=== PATIENT | female | born 1980 | race Caucasian/White ===

== ENCOUNTER 2019-10-06 08:00 | Outpatient (CLI) | payer BC, SELFPAY ==
[2019-10-08 20:01] LABS: SARS-CoV-2 RNA Undetected (Undetected); SARS-CoV-2 Specimen Source Nasopharynx
== END 2019-10-06 08:20 ==
PROVIDERS: Visit Provider Family Medicine
DX: Z11.59 Encounter for screening for other viral diseases (principal)
CPT/HCPCS: U0003

== ENCOUNTER 2019-10-16 00:22 | Outpatient (CLI) | payer BC, SELFPAY ==
--- NOTE | 2019-10-16 | DI.US_ITS ---
EXAM: US OB 1ST TRIMESTER CLINICAL HISTORY: , VIABILITY, [id number]. COMPARISON: No exams were available for comparison TECHNIQUE: Transabdominal Transvaginal first trimester obstetrical ultrasound performed. FINDINGS: The uterus is anteverted and measures 9.7 x 5.3 x 7.8 cm. There is a gestational sac which appears a ppropriately positioned within the endometrial cavity. A pole is seen with crown-rump length m easurements corresponding to 7 weeks 5 days and an EDC of 29 May 2020. cardiac activity i s demonstrated at 150 beats per minute. A corpus luteum cyst is noted on the right ovary. The left ovary is unremarkable. There is no free pelvic fluid. A yolk sac is seen. IMPRESSION: Single a living intrauterine gestation measuring 7 weeks 5 days. DATA REPOSITORY:
== END 2019-10-16 00:42 ==
PROVIDERS: PCP Family Medicine; Visit Provider Obstetrics & Gynecology
DX: Z34.91 Encounter for supervision of normal pregnancy, unspecified, first trimester (principal); Z3A.01 Less than 8 weeks gestation of pregnancy; N83.11 Corpus luteum cyst of right ovary
CPT/HCPCS: 76801